=== PATIENT | female | born 1950 | race Caucasian/White ===

== ENCOUNTER 2019-06-14 08:28 | Day surgery (SDC) | payer BC, MEDICAID, OTHER ==
[2019-06-14] MEDS ORDERED: Propofol 200 MG/20 ML SDV IV ONE (08:29)
[2019-06-14] MEDS ORDERED: Lactated Ringers 1,000 ML IV SCH (08:30)
[2019-06-14] MEDS ORDERED: Sodium Chloride 0.9% 10 ML Syringe FLUSH PRN (08:30)
[2019-06-14] MEDS ORDERED: Simethicone Drops 40 MG/0.6 ML 30 ML Bottle ONE (09:57)
--- NOTE | 2019-06-14 10:10 | PCM.OPNOTE ---
- General Post-Op/Procedure Note Date of Surgery/Procedure: 06/14/19 Operative Procedure(s): c scope Findings: none Pre Op Diagnosis: colon cancer screening Post-Op Diagnosis: Same Anesthesia Technique: MAC Primary Surgeon: Gilbert Min Anesthesia Provider: Chelsea Serrano Pathology: none Complications: None Condition: Good Free Text/Narrative:: see dictation
[2019-06-14 10:35] VITALS: BP 149/84; PULSE 70
--- NOTE | 2019-06-14 15:22 | OR ---
DATE OF OPERATION: 06/14/2019 SURGEON: Gilbert Min MD PROCEDURE PERFORMED: Colonoscopy. PREOPERATIVE DIAGNOSIS: Need for screening colonoscopy. POSTOPERATIVE DIAGNOSIS: Normal exam. INDICATIONS FOR PROCEDURE: This is a 69-year-old white female, who presents for a routine screening colonoscopy. She is without complaints. DESCRIPTION OF OPERATION: After an excellent IV sedation was administered, digital rectal exam was performed. No marked abnormality was noted. Flexible colonoscope was inserted to the cecum. The prep was excellent. Following findings were noted: Ascending colon, unremarkable. Transverse colon, unremarkable. Descending colon, unremarkable. Sigmoid and rectum, unremarkable. Colon was deflated as the scope was removed. The patient tolerated the procedure well and was taken to recovery room in good condition. Repeat scope in 10 years. /[id number] /MODL
== END 2019-06-14 10:51 | disposition home or self-care (01) ==
LOC: FB.SDS 08:28
PROVIDERS: ATTEND Surgery
DX: Z12.11 Encounter for screening for malignant neoplasm of colon (principal); I10 Essential (primary) hypertension; E11.9 Type 2 diabetes mellitus without complications; E78.2 Mixed hyperlipidemia; G25.81 Restless legs syndrome; G47.33 Obstructive sleep apnea (adult) (pediatric); K21.9 Gastro-esophageal reflux disease without esophagitis; M19.90 Unspecified osteoarthritis, unspecified site; E66.01 Morbid (severe) obesity due to excess calories; Z68.33 Body mass index [BMI] 33.0-33.9, adult; Z87.891 Personal history of nicotine dependence; Z98.84 Bariatric surgery status; Z88.8 Allergy status to other drugs, medicaments and biological substances; Z79.84 Long term (current) use of oral hypoglycemic drugs; Z79.899 Other long term (current) drug therapy
CPT/HCPCS: 82962; A9270-GY; J2704; J7120

== ENCOUNTER 2022-11-21 20:59 | Emergency (ER) | payer MEDICARE, OTHER ==
[2022-11-21] MEDS ORDERED: Sodium Chloride 0.9% 10 ML Syringe FLUSH PRN (21:11)
[2022-11-21 21:22] LABS: BASOPHILS PERCENT AUTO 0.3 % (0.2-1.5); EOSINOPHILS ABSOLUTE AUTO 0.2 x10-3/uL (0.0-0.8); EOSINOPHILS PERCENT AUTO 2.6 % (0.6-8.1); HEMOGLOBIN 11.2 g/dL (11.4-15.5); LYMPHOCYTES ABSOLUTE AUTO 2.1 x10-3/uL (1.0-4.4); LYMPHOCYTES PERCENT AUTO 25.6 % (18.4-52.1); MEAN CORPUSCULAR HEMOGLOBIN 27.9 pg (23.9-33.9); MEAN CORPUSCULAR HGB CONC 32.1 g/dL (31.9-34.8); MEAN PLATELET VOLUME 8.9 fL (7.1-12.4); MONOCYTES ABSOLUTE AUTO 1.1 x10-3/uL (0.3-1.0); MONOCYTES PERCENT AUTO 13.7 % (4.4-15.7); NEUTROPHILS ABSOLUTE AUTO 4.8 x10-3/uL (1.5-6.3); NEUTROPHILS PERCENT AUTO 57.8 % (30.8-76.2); PLATELET COUNT,PLT 287 x10(3)uL (151-488); RED BLOOD CELL COUNT 4.02 x10(6)uL (3.60-5.20); RED CELL DISTRIBUTION WIDTH 14.6 % (12.3-16.5); WHITE BLOOD CELL COUNT,WBC 8.3 x10-3/uL (3.0-10.3)
[2022-11-21 21:23] LABS: BLOOD UREA NITROGEN,BUN 21 mg/dL (7-18); CALCIUM 8.7 mg/dL (8.6-10.2); CARBON DIOXIDE,CO2 25 mmol/L (21-32); CHLORIDE,CL 106 mmol/L (100-110); ESTIMATED GFR 61 mL/min (>60); GLUCOSE RANDOM 149 mg/dL (80-116); POTASSIUM,K 4.5 mmol/L (3.5-5.3); SODIUM,NA 139 mmol/L (135-145)
[2022-11-21 21:34] LABS: ALANINE AMINOTRANSFERASE,ALT 15 U/L (12-36); ALBUMIN 3.7 g/dL (3.2-4.6); ALKALINE PHOSPHATASE 109 IU/L (56-112); ASPARTATE AMNIOTRANSFERASE,AST 34 IU/L (5-25); BILIRUBIN TOTAL 0.5 mg/dL (0.1-1.3); PROTEIN TOTAL,TP 7.3 g/dL (6.0-8.0)
[2022-11-21] MEDS ORDERED: Ketorolac 30 MG/ML SDV IVPUSH ONE (21:37)
[2022-11-21] MEDS ORDERED: Cyclobenzaprine 10 MG Tab PO ONE (21:38)
[2022-11-22 01:37] VITALS: BP 135/58; PULSE 79
== END 2022-11-21 22:45 | disposition home or self-care (01) ==
LOC: FB.ED 20:59
DX: M48.00 Spinal stenosis, site unspecified (principal); E11.9 Type 2 diabetes mellitus without complications; I10 Essential (primary) hypertension; Z79.84 Long term (current) use of oral hypoglycemic drugs; Z79.899 Other long term (current) drug therapy; Z88.8 Allergy status to other drugs, medicaments and biological substances
CPT/HCPCS: 36415; 71045; 80053; 84484; 85025; 96374; 99284; A9270; J1885; J3490; 93005

== ENCOUNTER 2022-12-10 07:46 | Emergency (ER) | payer MEDICARE, OTHER ==
[2022-12-10] MEDS ORDERED: Sodium Chloride 0.9% 1,000 ML IV SCH ×3 (08:15→10:30)
[2022-12-10] MEDS ORDERED: Ondansetron 4 MG/2 ML SDV IVPUSH ONE (08:15)
[2022-12-10] MEDS ORDERED: fentaNYL 100 MCG/2 ML SDV IVPUSH STA (08:20)
[2022-12-10 08:40] LABS: HEMATOCRIT 36.2 % (34.2-48.2); HEMOGLOBIN 11.5 g/dL (11.4-15.5); MEAN CORPUSCULAR HEMOGLOBIN 27.5 pg (23.9-33.9); MEAN CORPUSCULAR HGB CONC 31.7 g/dL (31.9-34.8); MEAN CORPUSCULAR VOLUME 86.7 fL (76.7-100.5); MEAN PLATELET VOLUME 9.1 fL (7.1-12.4); PLATELET COUNT,PLT 318 x10(3)uL (151-488); RED BLOOD CELL COUNT 4.18 x10(6)uL (3.60-5.20); RED CELL DISTRIBUTION WIDTH 14.2 % (12.3-16.5); WHITE BLOOD CELL COUNT,WBC 17.9 x10-3/uL (3.0-10.3)
[2022-12-10 08:51] LABS: A/G RATIO 0.9; ALANINE AMINOTRANSFERASE,ALT 9 U/L (12-36); ALBUMIN 3.1 g/dL (3.2-4.6); ALKALINE PHOSPHATASE 79 IU/L (56-112); ASPARTATE AMNIOTRANSFERASE,AST 12 IU/L (5-25); BILIRUBIN TOTAL 1.2 mg/dL (0.1-1.3); BLOOD UREA NITROGEN,BUN 46 mg/dL (7-18); BUN/CREATININE RATIO 20.9 (9-20); CALCIUM 8.3 mg/dL (8.6-10.2); CARBON DIOXIDE,CO2 21 mmol/L (21-32); CHLORIDE,CL 102 mmol/L (100-110); EST CRCL DRUG DOSING (CG) 21.41 mL/min; ESTIMATED GFR 24 mL/min (>60); GLUCOSE RANDOM 231 mg/dL (80-116); POTASSIUM,K 5.6 mmol/L (3.5-5.3); PROTEIN TOTAL,TP 6.5 g/dL (6.0-8.0); SODIUM,NA 136 mmol/L (135-145)
[2022-12-10 08:54] LABS: BAND PERCENT MAN 6 % (0-6); LYMPHOCYTES PERCENT MAN 2 % (13-37); METAMYELOCYTE PERCENT MAN 1 % (0-0); MONOCYTES PERCENT MAN 1 % (4-12); SEG NEUTROPHILS PERCENT MAN 90 % (46-82)
[2022-12-10 08:57] LABS: AMYLASE 534 U/L (25-115); CREATININE 2.2 mg/dL (0.55-1.02)
[2022-12-10] MEDS ORDERED: 50% Dextrose in Water 50 ML Syringe IVPUSH PRN (09:42)
[2022-12-10] MEDS ORDERED: Insulin Regular, Human 100 Units/ML 3 ML Vial SUBCUT ONE (09:42)
[2022-12-10] MEDS ORDERED: Albuterol 0.5% 5 MG/ML Neb Soln 20 ML Bottle NEB ONE (09:42)
[2022-12-10] MEDS ORDERED: Glucagon,Human Recombinant 1 MG Vial IM PRN (09:42)
[2022-12-10] MEDS ORDERED: Sodium Bicarbonate 8.4% 50 MEQ/50 ML Syringe IVPUSH ONE (09:43)
[2022-12-10] MEDS ORDERED: Pantoprazole 40 MG Vial IVPUSH ONE (09:46)
[2022-12-10] MEDS ORDERED: Pantoprazole 40 MG Vial ONE (09:56)
[2022-12-10] MEDS ORDERED: Albuterol 0.083% 2.5 MG/3 ML Neb Soln INH ONE (10:00)
[2022-12-10] MEDS ORDERED: HYDROmorphone 2 MG/ML SDV IVPUSH ONE (10:13)
[2022-12-10 10:21] LABS: LACTIC ACID 3.4 mmol/L (0.4-2.0)
[2022-12-10 10:53] LABS: BILIRUBIN,URINE SMALL (NEGATIVE); GLUCOSE,URINE NORMAL (NORMAL); KETONES,URINE NEGATIVE (NEGATIVE); LEUKOCYTE ESTERASE,URINE SMALL (NEGATIVE); NITRITE,URINE NEGATIVE (NEGATIVE); OCCULT BLOOD,URINE NEGATIVE (NEGATIVE); PROTEIN,URINE NEGATIVE (NEGATIVE); UROBILINOGEN,URINE NORMAL (NEGATIVE)
[2022-12-10 10:56] LABS: APPEARANCE,URINE SLIGHTLY CLOUDY (CLEAR); BACTERIA,URINE MANY (NS); COLOR,URINE YELLOW (YELLOW); SQUAMOUS EPITHELIAL CELLS,UR MODERATE (NS,R,O); WBC,URINE 0-5 (0-5)
[2022-12-10 11:15] VITALS: BP 105/53; PULSE 91
== END 2022-12-10 11:02 | disposition critical access hospital (66) ==
LOC: FB.ED 07:46
DX: K27.9 Peptic ulcer, site unspecified, unspecified as acute or chronic, without hemorrhage or perforation (principal); K25.5 Chronic or unspecified gastric ulcer with perforation; E86.0 Dehydration; E11.9 Type 2 diabetes mellitus without complications; I10 Essential (primary) hypertension; E78.5 Hyperlipidemia, unspecified; G47.33 Obstructive sleep apnea (adult) (pediatric); G25.81 Restless legs syndrome; N17.9 Acute kidney failure, unspecified; Z88.8 Allergy status to other drugs, medicaments and biological substances; Z79.84 Long term (current) use of oral hypoglycemic drugs; Z79.899 Other long term (current) drug therapy; Z20.822 Contact with and (suspected) exposure to COVID-19
CPT/HCPCS: 36415; 74176; 80053; 81001; 82150; 83605; 83690; 84132; 84484; 85025; 93005; 96361; 96374; 96375; 99285-25; C9113; J1170; J1815-GY; J2405; J3010; J7030; U0002

== ENCOUNTER 2023-08-25 13:18 | Emergency (ER) | payer MEDICARE, OTHER ==
[2023-08-25] MEDS ORDERED: Insulin Lispro 100 Unit/ML 3 ML KwikPen SUBCUT ONE (13:19)
[2023-08-25] MEDS ORDERED: Sodium Chloride 0.9% 10 ML Syringe FLUSH PRN (13:36)
[2023-08-25] MEDS ORDERED: 50% Dextrose in Water 50 ML Syringe IVPUSH PRN (13:43)
[2023-08-25] MEDS ORDERED: Glucagon,Human Recombinant 1 MG Vial IM PRN (13:43)
[2023-08-25] MEDS: Calcium Gluconate 10% 1 GM/10 ML SDV IVPUSH ONE (13:49)
[2023-08-25] MEDS: Sodium Chloride 0.9% 1,000 ML IV SCH (13:49)
[2023-08-25] MEDS: 50% Dextrose in Water 50 ML Syringe IVPUSH ONE (13:51)
[2023-08-25 13:54] LABS: BASOPHILS PERCENT AUTO 0.5 % (0.2-1.5); EOSINOPHILS ABSOLUTE AUTO 0.2 x10-3/uL (0.0-0.8); EOSINOPHILS PERCENT AUTO 2.9 % (0.6-8.1); HEMATOCRIT 34.3 % (34.2-48.2); HEMOGLOBIN 10.8 g/dL (11.4-15.5); LYMPHOCYTES ABSOLUTE AUTO 1.8 x10-3/uL (1.0-4.4); LYMPHOCYTES PERCENT AUTO 25.4 % (18.4-52.1); MEAN CORPUSCULAR HEMOGLOBIN 25.6 pg (23.9-33.9); MEAN CORPUSCULAR HGB CONC 31.4 g/dL (31.9-34.8); MEAN CORPUSCULAR VOLUME 81.4 fL (76.7-100.5); MEAN PLATELET VOLUME 9.1 fL (7.1-12.4); MONOCYTES ABSOLUTE AUTO 0.7 x10-3/uL (0.3-1.0); MONOCYTES PERCENT AUTO 10.3 % (4.4-15.7); NEUTROPHILS ABSOLUTE AUTO 4.3 x10-3/uL (1.5-6.3); NEUTROPHILS PERCENT AUTO 60.9 % (30.8-76.2); PLATELET COUNT,PLT 262 x10(3)uL (151-488); RED BLOOD CELL COUNT 4.21 x10(6)uL (3.60-5.20); RED CELL DISTRIBUTION WIDTH 14.7 % (12.3-16.5)
[2023-08-25] MEDS: Insulin Lispro 100 Unit/ML 3 ML KwikPen SUBCUT STA (14:04)
[2023-08-25 14:08] LABS: BLOOD UREA NITROGEN,BUN 27 mg/dL (7-18); CALCIUM 9.2 mg/dL (8.6-10.2); CARBON DIOXIDE,CO2 27 mmol/L (21-32); CHLORIDE,CL 105 mmol/L (100-110); EST CRCL DRUG DOSING (CG) 46.43 mL/min; ESTIMATED GFR 60 mL/min (>60); GLUCOSE RANDOM 147 mg/dL (80-116); SODIUM,NA 139 mmol/L (135-145)
[2023-08-25 14:15] LABS: A/G RATIO 0.9; ALANINE AMINOTRANSFERASE,ALT 18 U/L (12-36); ALBUMIN 3.2 g/dL (3.2-4.6); ALKALINE PHOSPHATASE 104 IU/L (56-112); ASPARTATE AMNIOTRANSFERASE,AST 13 IU/L (5-25); BILIRUBIN TOTAL 0.6 mg/dL (0.1-1.3); MAGNESIUM 1.6 mg/dL (1.8-2.5); PROTEIN TOTAL,TP 6.8 g/dL (6.0-8.0)
[2023-08-25 15:03] LABS: BILIRUBIN,URINE NEGATIVE (NEGATIVE); GLUCOSE,URINE 250 mg/dL (NORMAL); KETONES,URINE NEGATIVE (NEGATIVE); LEUKOCYTE ESTERASE,URINE NEGATIVE (NEGATIVE); NITRITE,URINE NEGATIVE (NEGATIVE); OCCULT BLOOD,URINE NEGATIVE (NEGATIVE); PROTEIN,URINE NEGATIVE (NEGATIVE); UROBILINOGEN,URINE NORMAL (NEGATIVE)
[2023-08-25 15:06] LABS: APPEARANCE,URINE CLEAR (CLEAR); BACTERIA,URINE OCCASIONAL (NS); COLOR,URINE YELLOW (YELLOW); RBC,URINE 0-5 (0-5); SQUAMOUS EPITHELIAL CELLS,UR FEW (NS,R,O); WBC,URINE 0-5 (0-5)
[2023-08-25 15:46] LABS: BLOOD UREA NITROGEN,BUN 26 mg/dL (7-18); BUN/CREATININE RATIO 28.9 (9-20); CALCIUM 9.2 mg/dL (8.6-10.2); CHLORIDE,CL 108 mmol/L (100-110); CREATININE 0.9 mg/dL (0.55-1.02); EST CRCL DRUG DOSING (CG) 51.59 mL/min; ESTIMATED GFR 68 mL/min (>60); GLUCOSE RANDOM 60 mg/dL (80-116); POTASSIUM,K 4.9 mmol/L (3.5-5.3); SODIUM,NA 141 mmol/L (135-145)
[2023-08-25 15:51] LABS: CARBON DIOXIDE,CO2 26 mmol/L (21-32)
[2023-08-25 16:56] VITALS: BP 162/68; PULSE 99
== END 2023-08-25 16:28 | disposition home or self-care (01) ==
LOC: FB.ED 13:18
DX: R00.2 Palpitations (principal); E87.5 Hyperkalemia; I10 Essential (primary) hypertension; E11.9 Type 2 diabetes mellitus without complications; Z88.8 Allergy status to other drugs, medicaments and biological substances; Z79.84 Long term (current) use of oral hypoglycemic drugs; Z79.899 Other long term (current) drug therapy
CPT/HCPCS: 36415; 80048; 80053; 81001; 83735; 84484; 85025; 93005; 93010; 96361; 96374; 99284; 99285-25; J0612; J1815; J7030